=== PATIENT | male | born 1990 | race Caucasian/White ===

== ENCOUNTER 2018-03-25 20:45 | Emergency (ER) | payer OTHER ==
[~2018-03-25] VITALS: Ht 177.8 cm; Wt 81.6 kg
--- NOTE | 2018-03-25 20:59 | NUR ---
PT AMBULATORY TO ER BED 10. BIBSELF C/O N/V/D AFTER "EATING SALMON AT 1400HRS TODAY". 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 VSS/RESP EVEN UNLABORED/NAD NOTED/SKIN WARM AND DRY/AFEBRILE/AOX4. AWAITNG MD BALTAZAR.
[2018-03-25] MEDS ORDERED: ONDANSETRON 4 MG TAB.RAPDIS ONE (21:08)
--- NOTE | 2018-03-25 21:10 | NUR ---
SAP DATA ANALYST ORDERED ZOFRAN 4MG ODT, RN PULLED AND ADMINISTERED MEDICATION. SAP DATA ANALYST CANCELLED MEDICATION TO ORDER ZOFRAN 4 MG IV, SAP DATA ANALYST DID NOT MAKE RN AWARE OF THIS CHANGE BEFORE CANCELING MEDICATION. RN MADE SAP DATA ANALYST AWARE THAT ZOFRAN 4MG ODT WAS ALREADY GIVEN, SAP DATA ANALYST STATED THAT WAS FINE AND SHE WOULD REORDER THE ZOFRAN ODT, ALSO CLARIFIED WITH SAP DATA ANALYST ATHAT SHE STILL WANTED ZOFRAN 4 MG IV.
[2018-03-25] MEDS ORDERED: ONDANSETRON HCL/PF 4 MG/2 ML VIAL ONE (21:12)
--- NOTE | 2018-03-25 21:20 | NUR ---
17G IV TO R AC X 1 ATTEMPT USING ASEPTIC TECH. IV FLUSHES EASILY WITH NS, NO S/S INFILTRATION NOTED AT THIS TIME.
[2018-03-25] MEDS ORDERED: ONDANSETRON HCL/PF 4 MG/2 ML VIAL IVP ONE (21:30)
[2018-03-25] MEDS ORDERED: ONDANSETRON 4 MG TAB.RAPDIS PO ONE (21:30)
[2018-03-25] MEDS ORDERED: IV NS 0.9% 1,000 ML BAG IV ONE (21:30)
--- NOTE | 2018-03-25 22:02 | NUR ---
PT GIVEN ORAL FLUIDS FOR PO CHALLENGE PER PRODUCT SAFETY ENGINEER ORDERS.
--- NOTE | 2018-03-25 23:17 | NUR ---
IV removed. Catheter intact and site benign. Pressure and 4x4 applied to site. No bleeding noted. Patient discharged to home in stable condition. Written and verbal after care instructions given. Patient verbalizes understanding of instruction. Patient ambulatory with a steady gait.
[2018-03-25 23:18] VITALS: BP 116/75
== END 2018-03-25 23:19 | disposition home or self-care (01) ==
LOC: ER 20:54
DX: K52.9 Noninfective gastroenteritis and colitis, unspecified (principal); F32.9 Major depressive disorder, single episode, unspecified
CPT/HCPCS: A4606; J2405; J7030; Q0162; Z7610

== ENCOUNTER 2024-03-12 09:38 | Emergency (ER) | payer BC, OTHER ==
[~2024-03-12] VITALS: Ht 180.3 cm; Wt 88.5 kg
[2024-03-12 09:44] VITALS: TEMP 98
[2024-03-12] MEDS ORDERED: LIDOCAINE 5% (PATCH) 1 EA PATCH TP ONE (10:15)
[2024-03-12] MEDS ORDERED: ACETAMINOPHEN ES 500 MG TABLET ONE (10:15)
[2024-03-12] MEDS ORDERED: oxyCODONE/APAP (5/325 MG) 1 UDTAB TABLET ONE (10:17)
[2024-03-12] MEDS: oxyCODONE/APAP (5/325 MG) 1 UDTAB TABLET PO ONE (10:39)
[2024-03-12] MEDS: ACETAMINOPHEN 325 MG TABLET PO ONE (10:39)
[2024-03-12] MEDS: LIDOCAINE 5% (PATCH) 1 EA PATCH TP ONE (10:40)
[2024-03-12] MEDS ORDERED: METH-649 PO (11:38)
[2024-03-12] MEDS ORDERED: LIDO30AD10 TP (11:38)
[2024-03-12 12:00] VITALS: BP 114/74
[2024-03-12 12:03] VITALS: O2SAT 98
== END 2024-03-12 12:12 | disposition home or self-care (01) ==
LOC: ER 09:54
DX: M54.50 Low back pain, unspecified (principal); F32.A Depression, unspecified; Z79.899 Other long term (current) drug therapy
CPT/HCPCS: 72131-TC